=== PATIENT | female | born 1965 | race Caucasian/White ===

== ENCOUNTER → 2017-10-02 | Outpatient (CLI) | payer BC | LOC: COL.RAD 07:04 | DX: N28.89 Other specified disorders of kidney and ureter (principal) ==

== ENCOUNTER → 2018-01-07 | Outpatient (CLI) | payer BC | LOC: COL.RAD 08:31 | DX: N39.0 Urinary tract infection, site not specified (principal); R33.9 Retention of urine, unspecified | CPT/HCPCS: Q9967 ==

== ENCOUNTER → 2018-05-22 | Outpatient (CLI) | payer BC | LOC: COL.RAD 11:29 | DX: N30.20 Other chronic cystitis without hematuria (principal) | CPT/HCPCS: A9562 ==